=== PATIENT | male | born 1995 | race Hispanic/Latino ===

== ENCOUNTER 2016-10-21 01:36 | Emergency (ER) | payer SELFPAY ==
[2016-10-21 01:43] VITALS: BP 145/108; PULSE 93; RESP 18; TEMP 98.6; O2SAT 100
--- NOTE | 2016-10-21 01:57 | ED PDOC ---
HPI: Psych/Substance Abuse Time Seen by Provider: 10/21/16 01:44 Chief Complaint (Nursing): Alcohol Ingestion Chief Complaint (Provider): alcohol intoxication and head trauma History Per: Patient Additional Complaint(s): Pt Past Medical History Vital Signs: Last Vital Signs Temp 98.6 F 10/21/16 01:38 Pulse 93 H 10/21/16 01:38 Resp 18 10/21/16 01:38 BP 145/108 H 10/21/16 01:38 Pulse Ox 100 10/21/16 01:38 - Allergies Allergies/Adverse Reactions: Allergies Allergy/AdvReac Type Severity Reaction Status Date / Time No Known Allergies Allergy Verified 10/21/16 01:43 - ECG O2 Sat by Pulse Oximetry: 100 Disposition - Disposition Disposition: Routine/Home Disposition Time: 02:05 Condition: STABLE Additional Instructions: DRINK IN MODERATION OR DON'T DRINK AT ALL Instructions: Alcohol Intoxication (ED), Facial Contusion (ED)
== END 2016-10-21 02:37 | disposition home or self-care (01) ==
LOC: H.ER 01:36
DX: F10.129 Alcohol abuse with intoxication, unspecified (principal); S00.93XA Contusion of unspecified part of head, initial encounter; W19.XXXA Unspecified fall, initial encounter; Y92.89 Other specified places as the place of occurrence of the external cause